=== PATIENT | female | born 1950 | race Caucasian/White ===

== ENCOUNTER 2020-01-04 17:58 | Observation (INO) | payer MEDICARE, BC ==
[~2020-01-04] VITALS: Ht 165.1 cm; Wt 62.8 kg
[~2020-01-04 17:58] MED LIST: CELEXA20 M1 PO
--- NOTE | 2020-01-04 17:58 | NUR ---
PATIENT BROUGHT TO ROOM 10 FOR BEDSIDE TRIAGE. PATIENT STATES LKW 1200 WHILE SHE WAS AT THE [employer] WORKING OUTSIDE AND DRINKING SOME ALCHOLIC BEVERAGES. PATIENT STATES THE SLIGHT DIZZINESS WHERE SHE IS SPINNING AND NOT THE ROOM. PATIENT STATES ON THE DRIVE HOME AT APPROXIMATELY 1700 PATIENT EXPERIENCED LEFT ARM TINGLING AND PULLED OVER AND CALLED TO TAKE HER TO THE ER. NIHSS, MEND AND HINTS EXAM PERFORMED AND ALL WERE NORMAL. PATIENT DENIES ANY SOB, PAIN OR DECREASED SENSATION AT THIS TIME. PATIENT HAD NO BIDIRECTIONAL NYSTAGMUS OR ABNORMAL TEST OF SKEW. PATIENT HAD NO TRUNKAL ATAXIA UPON STANDING FROM WHEELCHAIR AND TRANSFERING TO STRETCHER. MD AT BEDSIDE AND CALLED A STROKE ALERT. FAMILY AT BEDSIDE AND EXPLAINED TO THEM AND PATIENT THE PLAN OF CARE
[2020-01-04 18:46] LABS: HEMATOCRIT 40.9 % (37.0-47.0); HEMOGLOBIN 13.4 g/dl (12.0-16.0); IMMATURE GRANULOCYTES 0.6 % (0.0-5.0); MEAN CELL VOLUME 97.8 fL CALC (80.0-100.0); MEAN CORPUSCULAR HGB 32.1 pG CALC (26.0-32.0); MEAN CORPUSCULAR HGB CONC 32.8 g/dL CAL (32.0-36.0); NEUT# 6.77 thou/uL (2.00-7.15); RED BLOOD COUNT 4.18 mill/uL (4.20-5.60); RED CELL DISTRI WIDTH 12.8 % (11.5-15.5)
--- NOTE | 2020-01-04 18:50 | NUR ---
PT RESTING ON STRETCHER, DENIES ANY NEEDS AT THIS TIME. ADMIN ASPIRIN
[2020-01-04 19:03] LABS: ALKALINE PHOSPHATASE 75 u/l (38-126); ANION GAP 15 (6-22 (CALC)); BILIRUBIN, TOTAL 0.4 mg/dL (0.0-1.4); BUN 15 mg/dL (8-23); BUN/CREATININE RATIO 25 (12-20 (CALC)); CARBON DIOXIDE 27 mmol/l (22-30); CHLORIDE 95 mmol/l (95-108); CREATININE 0.6 mg/dL (0.5-1.0); ETHYL ALCOHOL 0 mg/dl (0-30); GFR > 60 ML/MIN (>=60 (CALC)); GFR FOR AFR.AMER. > 60 ML/MIN (>=60 (CALC)); POTASSIUM 4.1 mmol/l (3.5-5.1); SODIUM 134 mmol/l (137-146); TOTAL PROTEIN 8.3 g/dL (6.3-8.2)
[2020-01-04 19:09] LABS: SGOT/AST 37 u/l (9-36)
--- NOTE | 2020-01-04 19:50 | NUR ---
ASKED PT IF SHE COULD PROVIDE A URINE SPECIMEN, PT ASKED FOR ASSISTANCE TO BR
[2020-01-04] MEDS ORDERED: NP THYROID30 MG PO (19:57)
[2020-01-04] MEDS ORDERED: PROGESTERONE200 MG PO (19:58)
--- NOTE | 2020-01-04 20:14 | NUR ---
ATTEMPTED TO GIVE REPORT TO [facility] SUR[facility], THEY STATE NURSE IS BUSY AND WILL RETURN CALL SOON
--- NOTE | 2020-01-04 20:36 | NUR ---
GAVE REPORT TO
[2020-01-04 20:45] VITALS: BP 156/80
--- NOTE | 2020-01-04 20:45 | NUR ---
ASSESSMENT AND VITALS COMPLETE. PT ROSEY TEST WITHIN NORMAL LIMITS. TELE IN PLACE, NSR IN THE 80S, RESTING IN SEMI FOWLERS POSITION,A&O X3. PT DENIES ANY CURRENT PAIN OR DISCOMFORTS,PAIN SCALE AND REPORTING EDUCATED;RESPIRATIONS ARE NORMAL ON RA; ABDOMEN SOFT ON PALPATION AND ACTIVE IN ALL 4 QUADRANTS;STRONG PEDAL PULSES; SKIN INTACT;#20G TO RAC ,SITE APPEARS HEALTHY;ACCUCHECK 330, PT COVERED WITH SLIDING SCALE NOVOLOG PER ORDER;PT DENIES ANY ADDITIONAL NEEDS AT THIS TIME AND IS ENCOURAGED TO CALL FOR ASSISTANCE IF NEEDED;FALL PRECAUTIONS IN PLACE WITH BED IN THE LOWEST POSITION. WILL CONTINUE TO MONITOR. AND CALL LIGHT IN REACH;WILL CONTINUE TO MONITOR.
--- NOTE | 2020-01-04 20:45 | NUR ---
REPORT RECEIVED FROM BETHEL FROM THE ED. ARRIVES VIA WC ACCOMPANIED BY BETHEL RUBIO. PT AMBULATORY TO BED. GAIT STEADY AND BALANCED. PT DENIES PAIN AT THIS TIME. ORIENTED TO UNIT, ROOM, CALL DOWD, LIGHTS, TV. ICE CHIPS PROVIDED. PT VERBALIZES UNDERSTANDING AND AGREEMENT. CALL DOWD WITHIN REACH. AGREES TO CALL PRN.
--- NOTE | 2020-01-04 20:47 | NUR ---
PT TRANSPORTED TO [facility] STABLE AND IN NO DISTRESS. CARE ASSUMED TO BRADEN. Admission Note Report Given to: BRADEN Transported by: X Wheelchair Stretcher Transported with: X Nurse Transporter X Patent IV O2 X Dumpman Location: ICU X MS2
[2020-01-04 21:00] LABS: URINE BILIRUBIN - DIPSTICK NEGATIVE (NEGATIVE); URINE BLOOD DIPSTICK TRACE-LYSED (NEGATIVE); URINE COLOR YELLOW; URINE GLUCOSE - DIPSTICK NEGATIVE (NEGATIVE); URINE KETONE TRACE mg/dL (NEGATIVE); URINE LEUK ESTERASE NEGATIVE (NEGATIVE); URINE NITRITE - DIPSTICK NEGATIVE (Negative); URINE PROTEIN - DIPSTICK NEGATIVE (NEG-TRACE); URINE UROBILINOGEN - DIPSTICK 0.2 E.U./dL (0.2)
--- NOTE | 2020-01-05 00:01 | NUR ---
PHYSICAL ASSESSMENT UNCHANGED FROM THE BEGINNING OF SHIFT BASELINE ASSESSMENT. NEURO CHECK, NIH SCALE REMAIN ZERO. PT DENIES ANY DEFICITS IN MOTOR SKILLS AT THIS TIME. PT DENIES ANY NEEDS AT THIS TIME. WILL CONTINUE TO MONITOR.
[2020-01-05 04:00] VITALS: BP 122/72
--- NOTE | 2020-01-05 04:02 | NUR ---
PT IS RESTING IN BED WITH NO S/S OF DISTRESS NOTED. TELE IN PLACE. IV PATENT WITH NO REDDNESS OR SWELLING. PT DENIES ANY NEEDS AT THIS TIME. CALL LIGHT IN REACH.
[2020-01-05 07:45] VITALS: BP 126/64
--- NOTE | 2020-01-05 07:45 | NUR ---
PT LAYING IN BED. A&O X3. NO DISTRESS NOTED. PT DENIES ANY PAIN AT THIS TIME. PT DENIES ANY SYMPTOMS THAT ARE SIMILAR IN NATURE TO YESTERDAY. NO OTHER NEEDS AT THIS TIME. ASSESSMENT COMPLETED. DISCUSSED POC. CALL LIGHT IN REACH. CONTINUE TO MONITOR.
--- NOTE | 2020-01-05 07:51 | NUR ---
Patient is screened and would benefit from PT OT and ST interventions
--- NOTE | 2020-01-05 08:56 | NUR ---
ST is not needed at this time per BRENT Mcnulty.
[2020-01-05 09:23] LABS: CHOLESTEROL HDL RATIO 2.9 (<4.4 (CALC))
--- NOTE | 2020-01-05 12:52 | NUR ---
PT TAKEN DOWN VIA WC TO MRI ACCOMPANIED BY CANDELARIA
[2020-01-05 15:40] VITALS: BP 128/77
[2020-01-05] MEDS ORDERED: MECLIZINE25 MG PO (16:57)
--- NOTE | 2020-01-05 18:45 | NUR ---
Discharge instructions given. Patient verbalizes understanding of same. Discharged in stable condition via Wheelchair to Home with staff. All belongings sent with pt.
== END 2020-01-05 18:45 | disposition home or self-care (01) ==
LOC: ED 17:58 → ED-I 19:20 → ED 19:30 → MS2 19:31
PROVIDERS: Family Medicine; Nurse Practitioner; ADMIT Internal Medicine; ATTEND Internal Medicine
DX: G45.9 Transient cerebral ischemic attack, unspecified (principal); R42 Dizziness and giddiness; R07.9 Chest pain, unspecified; E05.90 Thyrotoxicosis, unspecified without thyrotoxic crisis or storm; F32.9 Major depressive disorder, single episode, unspecified; Z20.828 Contact with and (suspected) exposure to other viral communicable diseases
CPT/HCPCS: G0378